=== PATIENT | female | born 1990 | race Caucasian/White ===

== ENCOUNTER 2021-12-24 05:30 | Day surgery (SDC) | payer OTHER ==
[2021-12-23 13:04] LABS: BASOPHILS # (AUTO) 0.1 K/uL (0.0-0.2); BASOPHILS % (AUTO) 0.6 % (0.0-2.0); EOSINOPHILS % (AUTO) 0.3 % (0.0-4.0); HEMATOCRIT 41.1 % (36-48); LYMPHOCYTES # (AUTO) 2.4 K/uL (1.0-5.5); LYMPHOCYTES % (AUTO) 27.6 % (20.5-51.5); MEAN CORPUSCULAR HEMOGLOBIN 30 pg (27-31); MEAN CORPUSCULAR HGB CONC 34 % (32-36); MEAN CORPUSCULAR VOLUME 89 fL (79.0-98.0); MONOCYTES # (AUTO) 0.8 K/uL (0.0-1.0); MONOCYTES % (AUTO) 9.7 % (1.7-9.3); NEUTROPHILS # (AUTO) 5.4 K/uL (1.8-7.7); NEUTROPHILS % (AUTO) 61.8 % (40.0-70.0); PLATELET COUNT (AUTO) 276 K/uL (130-430); RED CELL DISTRIBUTION WIDTH 13.7 % (9.0-15.0); WHITE BLOOD COUNT (AUTO) 8.8 K/uL (4.8-10.8)
[2021-12-23 13:09] LABS: BILIRUBIN,URINE NEGATIVE (NEGATIVE); BLOOD, URINE NEGATIVE (NEGATIVE); COLOR,URINE YELLOW (YELLOW); GLUCOSE,URINE NEGATIVE (NEGATIVE); KETONES,URINE NEGATIVE (NEGATIVE); LEUKOCYTE ESTERASE ,URINE NEGATIVE (NEGATIVE); NITRITE, URINE NEGATIVE (NEGATIVE); PROTEIN URINE NEGATIVE (NEGATIVE); UROBILINOGEN,URINE 0.2 (0.2-1.0)
[2021-12-23 13:11] LABS: HCG,QUAL RESULT NEGATIVE (NEGATIVE)
[2021-12-23 13:19] LABS: CALCIUM 9.1 mg/dL (8.4-11.0); CREATININE 0.65 mg/dL (0.55-1.30); POTASSIUM 3.8 mmol/L (3.5-5.1)
[2021-12-23 13:23] LABS: PROTHROMBIN TIME 10.3 SECS (9.5-12.5)
[2021-12-23 14:14] LABS: CLARITY/URINE CLOUDY (CLEAR)
[~2021-12-24] VITALS: Ht 170.2 cm; Wt 112.5 kg
[2021-12-24] MEDS ORDERED: KETOROLAC TROMETHAMINE 30 MG VIAL ONE ×2 (07:37→08:59)
[2021-12-24] MEDS ORDERED: LR 1,000 ML IV.SOLN IV ONE (07:37)
[2021-12-24] MEDS ORDERED: PROPOFOL 200MG/ 20ML VIAL (DIPRIVAN) IV ONE (07:37)
[2021-12-24] MEDS ORDERED: ROCURONIUM BROMIDE 10 MG/ML (ZEMURON) ONE (07:37)
[2021-12-24] MEDS ORDERED: SEVOFLURANE 15 MIN GAS INH ONE (07:37)
[2021-12-24] MEDS ORDERED: HYDR-3917 PO (08:54)
[2021-12-24] MEDS ORDERED: DOCU250C71 PO (08:54)
[2021-12-24] MEDS ORDERED: KETOROLAC TROMETHAMINE 30 MG VIAL IVP ONE (09:00)
[2021-12-24] MEDS ORDERED: IBUP-1969 PO (09:00)
[2021-12-24] MEDS ORDERED: HYDROmorphone 1 MG/ML INJ. CARTRIDGE IVP ONE (09:00)
[2021-12-24] MEDS: HYDROmorphone 1 MG/ML INJ. CARTRIDGE ONE ×2 (09:00→09:10)
[2021-12-24] MEDS ORDERED: ONDANSETRON HCL 4 MG/2 ML VIAL ONE (10:41)
[2021-12-24] MEDS ORDERED: ONDANSETRON HCL 4 MG/2 ML VIAL IVP ONE (10:45)
[2021-12-24 11:25] VITALS: BP_SYST 118
[2021-12-26] MEDS ORDERED: TRAM50TA2 PO (11:57)
== END 2021-12-24 11:20 | disposition home or self-care (01) ==
LOC: SDS 05:30
PROVIDERS: ATTEND Orthopaedic Surgery Sports Medicine
DX: S92.351A Displaced fracture of fifth metatarsal bone, right foot, initial encounter for closed fracture (principal); J44.9 Chronic obstructive pulmonary disease, unspecified; F41.9 Anxiety disorder, unspecified; Z91.040 Latex allergy status; X58.XXXA Exposure to other specified factors, initial encounter; Y93.89 Activity, other specified; Y92.89 Other specified places as the place of occurrence of the external cause; Y99.8 Other external cause status; Z79.01 Long term (current) use of anticoagulants; Z79.899 Other long term (current) drug therapy
CPT/HCPCS: 80048; 84703; 85025; 85610; 85730; 36415; 81003; 28322; 97161; 76000; U0003; J1885; J2405; J2704; J1170; J7120; C1776